=== PATIENT | female | born 1975 | race Caucasian/White ===

== ENCOUNTER → 2016-07-19 | Outpatient (CLI) | payer OTHER ==
--- NOTE | 2016-07-19 09:26 | REP ---
RIGHT UPPER QUADRANT ULTRASOUND: 07/19/2016. Clinical history: Nausea, prior hepatic resection in 2006. I have no prior studies. Findings: Sonographic evaluation of the liver shows it to be homogeneous in echotexture. There is no discrete hepatic mass, biliary dilation or enlargement of the liver. There is no adjacent ascites. The gallbladder shows no stone, sludge or pericholecystic fluid. Common duct is 2.2 mm without filling defect visualized pancreas is unremarkable without mass, echogenic focus to suggest calcification, intrapancreatic ductal dilatation or adjacent fluid/mass. The right kidney is 11.2 x 5.9 x 4.3 cm without stone or hydronephrosis. Impression: . Negative right upper quadrant ultrasound for hepatic mass, biliary dilatation, ascites, gallstones, gallbladder wall thickening or pericholecystic fluid. 2. Common duct 2.2 mm with the right kidney and pancreas unremarkable. Signed by Edy Clark MD 07/19/2016 05:15 P
== END ==
LOC: M RAD 08:33
PROVIDERS: ATTEND Internal Medicine
DX: R11.0 Nausea (principal)

== ENCOUNTER → 2016-11-29 | Outpatient (CLI) | payer OTHER ==
--- NOTE | 2016-11-29 16:59 | REP ---
Clinical: Right-sided pain and swelling. Technique: AP, lateral, bilateral oblique and coned-down views of the lumbosacral spine. Findings: Chronic L5 spondylolysis with grade 1 spondylolisthesis of approximately 9 mm. Associated disc space narrowing and hypertrophic facet changes are appreciated. The remainder of the examination is relatively normal for age. Impression: Chronic L5 spondylolysis and spondylolisthesis with 9 mm of anterolisthesis noted and associated hypertrophic facet changes suggest chronic findings. Signed by Jake Winston MD 11/29/2016 04:50 P
== END ==
LOC: M LRY 16:03
PROVIDERS: ATTEND Physician Assistant
DX: M54.5 Low back pain (principal)

== ENCOUNTER → 2017-01-19 | Outpatient (REF) | payer OTHER | LOC: M SFHCLERA 15:37 | PROVIDERS: ATTEND Nurse Practitioner Family | DX: J02.9 Acute pharyngitis, unspecified (principal) ==

== ENCOUNTER → 2018-06-05 | Outpatient (CLI) | payer OTHER ==
--- NOTE | 2018-06-05 10:30 | REPMRS ---
Patient History The patient states she has not had a clinical breast exam in over a year. No known family history of cancer. Digital Mammo Screening Bilat: June 05, 2018 - Exam #: [id number] Bilateral CC and MLO view(s) were taken. Technologist: Chasidy August, Technologist No prior studies available for comparison. FINDINGS: The breast tissue is heterogeneously dense. This may lower the sensitivity of mammography. There is no evidence of dominant mass, architectural distortion, or clustered microcalcification typical of malignancy. Assessment: BI-RADS/ACR category 1 mammogram. Negative. Recommendation Routine screening mammogram of both breasts in 1 year (for women over age 40). This patient's Lifetime Breast Cancer RIsk is estimated at 12.2 %. This mammogram was interpreted with the aid of an FDA-approved computer-aided dectection system. Electronically Signed By: Tariq Leong MD 06/05/18 [id number]
== END ==
LOC: M RAD 09:25
PROVIDERS: ATTEND Physician Assistant Medical
DX: Z12.31 Encounter for screening mammogram for malignant neoplasm of breast (principal)

== ENCOUNTER → 2018-07-21 | Outpatient (REF) | payer OTHER | LOC: M SFHCLERA 19:12 | PROVIDERS: ATTEND Physician Assistant | DX: R52 Pain, unspecified (principal) ==